=== PATIENT | male | born 1965 | race Caucasian/White ===

== ENCOUNTER 2019-04-22 08:02 | Outpatient (CLI) | payer OTHER, SELFPAY ==
[2019-04-22 08:30] LABS: Basophils Absolute Auto 0.1 K/mm3 (0.0-0.1); Basophils Percent Auto 0.7 % (0.2-1.2); Eosinophils Absolute Auto 0.2 K/mm3 (0-0.3); Eosinophils Percent Auto 2.1 % (0-4.4); Hematocrit 46.1 % (42.0-52.0); Hemoglobin 16.4 g/dL (14.0-18.0); Immature Granulocyte Absolute 0.03 K/mm3 (0.00-0.031); Immature Granulocyte Percent A 0.4 % (0-0.5); Lymphocytes Absolute Auto 2.01 K/mm3 (0.9-3.2); Lymphocytes Percent Auto 26.6 % (18.3-44.2); Mean Corpuscular HGB Conc 35.6 g/dl (32-36); Mean Corpuscular Hemoglobin 32.8 pg (26-34); Mean Corpuscular Volume 92.2 fl (80-100); Mean Platelet Volume 10.4 fl (7.4-10.4); Monocytes Absolute Auto 0.7 K/mm3 (0.1-0.6); Monocytes Percent Auto 8.6 % (2.6-8.5); Neutrophils Absolute Auto 4.7 K/mm3 (1.3-6.7); Neutrophils Percent Auto 61.6 % (45.5-73.1); Platelet Count Result 245 k/mm3 (150-375); Red Cell Distribution Width 12.6 % (11.5-14.5); White Blood Count 7.6 K/mm3 (4.5-10.0)
[2019-04-22 08:54] LABS: Alanine Aminotransferase 68 U/L (4-50); Albumin Level 4.6 g/dL (3.5-5.1); Alkaline Phosphatase 46 U/L (38-126); Aspartate Amino Transferase 39 U/L (17-59); Bilirubin,Total 0.7 mg/dL (0.2-1.3); Blood Urea Nitrogen 15 mg/dL (9-20); Calcium 9.8 mg/dL (8.4-10.2); Carbon Dioxide 24 mmol/L (22-30); Chloride 102 mmol/L (98-107); Cholesterol 190 mg/dL (0-200); Estimated Glomerular Filt Rate > 60; Glucose 116 mg/dL (75-110); HDL Direct 56 mg/dL; Potassium 4.3 mmol/L (3.4-5.0); Sodium 140 mmol/L (137-145); Triglycerides 109 mg/dL (<150)
[2019-04-22 09:05] LABS: LDL Cholesterol Direct 111 mg/dL
[2019-04-22 09:17] LABS: Prostate Specific Antigen 0.6 ng/mL (< OR = 4.0)
== END 2019-04-22 08:03 | disposition home or self-care (01) ==
PROVIDERS: PCP Family Medicine; Visit Provider Family Medicine
DX: Z00.00 Encounter for general adult medical examination without abnormal findings (principal); I10 Essential (primary) hypertension; Z13.220 Encounter for screening for lipoid disorders; Z12.5 Encounter for screening for malignant neoplasm of prostate; F32.9 Major depressive disorder, single episode, unspecified; K58.0 Irritable bowel syndrome with diarrhea
CPT/HCPCS: 36415; 80053; 80061; 84153; 84443; 85025

== ENCOUNTER 2019-04-25 17:45 | Outpatient (NON) | payer OTHER, SELFPAY ==
[2019-04-25 17:59] LABS: Hemoglobin A1C 5.7 % (<5.7)
== END 2019-04-25 17:46 ==
LOC: ANHLAB 17:46
PROVIDERS: PCP Family Medicine; Visit Provider Family Medicine
DX: R73.9 Hyperglycemia, unspecified (principal)
CPT/HCPCS: 36415; 83036

== ENCOUNTER 2019-05-29 15:42 | Emergency (ER) | payer OTHER, SELFPAY ==
[2019-05-29 15:46] VITALS: BP 125/84; PULSE 63; RESP 18; TEMP 36.4; O2SAT 100
--- NOTE | 2019-05-29 16:21 | ED.GIBLEED ---
HPI - GI Bleed General Chief complaint: GI Bleed <Brooklyn Gallegos PA-C - Last Filed: 05/29/19 19:24> Stated complaint: weakness/defecating blood <Brooklyn Gallegos PA-C - Last Filed: 05/29/19 19:24> Time Seen by Provider: 05/29/19 15:53 <Brooklyn Gallegos PA-C - Last Filed: 05/29/19 19:24> Source: patient <HARRIET Stapleton Last Filed: 05/29/19 19:24> Mode of arrival: ambulatory <Brooklyn Gallegos PA-C - Last Filed: 05/29/19 19:24> Limitations: no limitations <HARRIET Stapleton Last Filed: 05/29/19 19:24> History of Present Illness HPI Narrative: Patient presents with chief complaint of streaks of red blood intermittently with bowel movements for the past week. He denies diarrhea or vomiting. He states his stool has been hard recently. Patient reports diffuse suprapubic discomfort. Patient denies prior history of GI bleeds or ulcers. Patient states that he drinks on occasion and last had an alcoholic beverage on Wednesday. He states he felt fatigued today and had some body aches. Patient denies any cough, chest pain, shortness of breath. <Brooklyn Gallegos PA-C - Last Filed: 05/29/19 19:24> Related Data Allergies/Adverse reactions: Allergies Allergy/AdvReac Type Severity Reaction Status Date / Time No Known Allergies Allergy Verified 05/29/19 16:08 <Brooklyn Gallegos PA-C - Last Filed: 05/29/19 19:24> Review of Systems Review of Systems: Narrative: CONSTITUTIONAL: Reports fatigue and body aches denies fever, chills, or sweats. EYES: Denies visual changes, redness, or discharge. ENT: Denies rhinorrhea, congestion, sore throat, or otalgia. CARDIOVASCULAR: Denies chest pain, palpitations, or edema. RESPIRATORY: Denies cough or dyspnea. GASTROINTESTINAL: Reports rare blood in stool and diffuse suprapubic discomfort denies nausea, vomiting, or diarrhea. GENITOURINARY: Denies dysuria or hematuria. SKIN: Denies rash or itching. MUSCULOSKELETAL: Denies back pain, joint pain, or myalgia. NEUROLOGIC: Denies headache, numbness, dizziness, or neurological deficit PSYCHIATRIC: Denies anxiety or depression. <Brooklyn Gallegos PA-C - Last Filed: 05/29/19 19:24> [facility] Social History Social History: Social History (Updated 05/09/19 @ 11:09 by Sera Reynolds) Smoking status: Never smoker Second hand tobacco smoke exposure: No Additional smoking assessment comments: currently smokes around pt Alcohol intake: current Substance use: never Substance use type: does not use Gender identity (if verbalized by the patient): Male <Brooklyn Gallegos PA-C - Last Filed: 05/29/19 19:24> Exam Narrative: Exam Narrative: GENERAL: Well-appearing, well-nourished, and in no acute distress. HEAD: Normocephalic, atraumatic. EYES: PERRLA and EOMI. ENT: Nares clear, no rhinorrhea or epistaxis. Mucous membranes moist. Oropharynx without tonsillar hypertrophy exudate or other lesions. Bilateral TMs pearly osullivan nonbulging CHEST: Clear to auscultation. No respiratory distress. No wheezes rales or rhonchi HEART: Regular rate and rhythm. No murmur heard. Normal peripheral pulses. ABDOMEN: Soft, mild diffuse lower quadrant tenderness, nondistended, normal active bowel sounds. Hemoccult negative. EXTREMITIES: Normal range of motion. No edema. SKIN: Warm, dry, no rash. NEURO: No focal deficits. Alert and oriented x3. PSYCH: Normal mood and affect. <Brooklyn Gallegos PA-C - Last Filed: 05/29/19 19:24> Course Vital Signs Vital signs: Vital Signs Temperature 36.4 C 05/29/19 15:46 Pulse Rate 63 05/29/19 15:46 Respiratory Rate 18 05/29/19 15:46 Blood Pressure 125/84 05/29/19 15:46 Pulse Oximetry 100 05/29/19 15:46 Temperature 36.4 C 05/29/19 15:46 Pulse Rate 63 05/29/19 15:46 Respiratory Rate 18 05/29/19 15:46 Blood Pressure 125/84 05/29/19 15:46 Pulse Oximetry 100 05/29/19 15:46 <Brooklyn Gallegos PA-C - Last Filed: 05/29/19 19:24>
[2019-05-29] MEDS: SODIUM CHLORIDE 0.9% IV 1,000 ML 999 ML IV CONT (16:28)
[2019-05-29 16:46] LABS: Basophils Absolute Auto 0.1 K/mm3 (0.0-0.1); Eosinophils Percent Auto 9.1 % (0-4.4); Hematocrit 48.1 % (42.0-52.0); Hemoglobin 16.7 g/dL (14.0-18.0); Immature Granulocyte Absolute 0.06 K/mm3 (0.00-0.031); Immature Granulocyte Percent A 0.6 % (0-0.5); Lymphocytes Percent Auto 23.8 % (18.3-44.2); Mean Corpuscular HGB Conc 34.7 g/dl (32-36); Mean Corpuscular Volume 95.1 fl (80-100); Mean Platelet Volume 11.3 fl (7.4-10.4); Monocytes Absolute Auto 0.8 K/mm3 (0.1-0.6); Monocytes Percent Auto 7.8 % (2.6-8.5); Neutrophils Absolute Auto 6.1 K/mm3 (1.3-6.7); Neutrophils Percent Auto 57.7 % (45.5-73.1); Platelet Count Result 272 k/mm3 (150-375); Red Blood Count 5.06 M/mm3 (4.6-6.20); White Blood Count 10.5 K/mm3 (4.5-10.0)
[2019-05-29 16:56] LABS: Add Urine Microscopic? NO; Appearance Urine Clear (Clear); Bilirubin Urine Negative (Negative); Blood Urine Negative (Negative); Color Urine Yellow (Yellow); Glucose Urine UA Negative (Negative); Ketones Urine Negative (Negative); Leukocyte Esterase Ur Negative LEU/UL (Negative); Nitrate Urine Negative (Negative); Protein Urine Negative (Negative); Specific Grav Ur 1.012 (1.001-1.035); Urobilinogen Urine Negative mg/dL (<2.0)
[2019-05-29 16:59] LABS: Alanine Aminotransferase 58 U/L (4-50); Albumin Level 4.8 g/dL (3.5-5.1); Alkaline Phosphatase 45 U/L (38-126); Aspartate Amino Transferase 36 U/L (17-59); Bilirubin,Total 0.4 mg/dL (0.2-1.3); Blood Urea Nitrogen 21 mg/dL (9-20); Calcium 9.7 mg/dL (8.4-10.2); Carbon Dioxide 24 mmol/L (22-30); Chloride 105 mmol/L (98-107); Estimated CRCL calculation 98 ml/min; Estimated Glomerular Filt Rate > 60; Glucose 112 mg/dL (75-110); Potassium 4.2 mmol/L (3.4-5.0); Sodium 138 mmol/L (137-145)
--- NOTE | 2019-06-07 11:45 | PC.NURSE ---
Late entry by this RN. Pt received 1000 ml of NS that was completed at 1717
== END 2019-05-29 18:18 | disposition home or self-care (01) ==
PROVIDERS: Physician Assistant; Emergency Provider Emergency Medicine; PCP Family Medicine
DX: K92.1 Melena (principal); Z77.22 Contact with and (suspected) exposure to environmental tobacco smoke (acute) (chronic)
CPT/HCPCS: 36415; 80053; 81003; 85025; 87804; 96360; 99283; J7030

== ENCOUNTER 2019-11-15 19:33 | Emergency (ER) | payer OTHER, SELFPAY ==
--- NOTE | ~2019-11-15 | CT_ITS ---
EXAMINATION: CT lumbar spine wo con DATE: 11/15/2019 20:38 INDICATION: Low back pain. TECHNIQUE: Computed tomography (CT) of the lumbar spine was performed without intravenous contrast. A utomated exposure control and iterative reconstruction technique were employed. The dose-length produ ct was 863.57 mGy-cm. COMPARISON: None FINDINGS: There is 7 degrees dextrocurvature of lumbar spine. There is 3 mm retrolisthesis of L3 on L 4 and 4 mm anterolisthesis of L3 on L4. There are Schmorl's nodes at multiple levels. There is mildly decreased disc height at L1-L2, severely decreased disc height at L2-L3, moderately decreased disc h eight at L3-L4, and severely decreased disc height at L4-L5 and L5-S1. The following disc levels are specifically discussed: L1-L2: The disc is bulging. There is mild right and moderate left facet joint osteoarthritis. There i s mild bilateral neural foraminal stenosis. There is mild central canal stenosis. L2-L3: The disc is bulging. There is severe right and moderate left facet joint osteoarthritis. There is mild right and moderate left neural foraminal stenosis. There is mild central canal stenosis. L3-L4: The disc is bulging. There is mild bilateral facet joint osteoarthritis. There is mild bilater al neural foraminal stenosis. There is mild central canal stenosis. L4-L5: The disc is bulging. There is severe bilateral facet joint osteoarthritis. There is moderate b ilateral neural foraminal stenosis. There is mild central canal stenosis. L5-S1: The disc is bulging. There is severe right and mild left facet joint osteoarthritis. There is mild bilateral neural foraminal stenosis. There is mild central canal stenosis. IMPRESSION: 1. Severe lumbar spondylosis. Reviewed, dictated and finalized at location A.
[2019-11-15 19:39] VITALS: BP 166/85; PULSE 66; RESP 14; TEMP 36.2; O2SAT 99
--- NOTE | 2019-11-15 19:51 | PC.NURSE ---
pt c/o lumbar region back pain. pt states pain is chronic but worsened after lifting heavy object today. denies any numbness/tingling, loss of bowel/bladder. pt ambulatory in ED but c/o pain. +PMS.
--- NOTE | 2019-11-15 19:56 | ED.BACK ---
HPI - Back Pain/Injury General Chief Complaint: Back Pain/Injury Stated Complaint: back pain Time Seen by Provider: 11/15/19 19:56 Source: patient Mode of arrival: ambulatory Limitations: no limitations History of Present Illness HPI Narrative: Patient is a 54-year-old male with a history of hypertension who presents for evaluation of back pain. Patient states he was lifting a heavy object house approximately 80 pound this afternoon when he felt a pop in his left lower back. Patient had immediate pain that radiates into his buttocks. He denies any urinary retention, saddle anesthesia, minimal pain with walking, but no difficulty with walking. He states that he has a history of discectomy, lower back surgery 14 years prior. Patient denies any cancer history, history of osteoporosis, no fall. No numbness or weakness in his lower extremities. Patient took ibuprofen earlier today which somewhat alleviated the pain. Related Data Allergies Allergy/AdvReac Type Severity Reaction Status Date / Time No Known Allergies Allergy Verified 11/15/19 19:45 Review of Systems Review of Systems: Narrative: CONSTITUTIONAL: Denies fever CARDIOVASCULAR: Denies chest pain RESPIRATORY: Denies cough or dyspnea. GASTROINTESTINAL: Denies abdominal pain SKIN: Denies rash MUSCULOSKELETAL: Reports left-sided lower back pain NEUROLOGIC: Denies headache PMFSH Past Medical History Medical History Arthritis Chondromalacia of left patellofemoral joint Chondromalacia of patellofemoral joint Depression Diverticulitis Headache Hypertension SURI (obstructive sleep apnea) Osteoarthritis Seasonal allergies Stomach pain Vision abnormalities Weight gain Surgical History Surgical History History of carpal tunnel release 1997 History of discectomy 2005 History of shoulder surgery 2007 Social History Social History Smoking status: Never smoker Second hand tobacco smoke exposure: No Additional smoking assessment comments: currently smokes around pt Alcohol intake: current Substance use: never Substance use type: does not use Gender identity (if verbalized by the patient): Male Exam Narrative: Exam Narrative: GENERAL: Awake, alert, conversant HEAD: Normocephalic, atraumatic. EYES: PERRLA and EOMI. ENT: Nares clear, no rhinorrhea or epistaxis. Mucous membranes moist. NECK: Supple. CHEST: No respiratory distress, breathing even and non labored HEART: Regular rate, sinus rhythm ABDOMEN:Non distended, non tender Thoracolumbar: No midline thoracic or lumbar tenderness. Right lumbar SI joint tenderness that reproduces pain. EXTREMITIES: Normal range of motion. No edema. SKIN: Warm, dry, no rash. NEURO:No focal deficits. Alert and oriented x3.No facial droop/asymmetry noted bilaterally. Grimace intact. Intact sensation in face.Strength 5/5 bilateral upper extremities. Strength 5/5 bilateral lower extremities. Reflexes 2+ patellar. Ambulatory with a narrow base, steady gait, no ataxia, no foot drop. Course Vital Signs Vital signs: Vital Signs Temperature 36.2 C L 11/15/19 19:39 Pulse Rate 66 11/15/19 19:39 Respiratory Rate 14 11/15/19 19:39 Blood Pressure 166/85 H 11/15/19 19:39 Pulse Oximetry 99 11/15/19 19:39 Temperature 36.2 C L 11/15/19 19:39 Pulse Rate 66 11/15/19 19:39 Respiratory Rate 14 11/15/19 19:39 Blood Pressure 166/85 H 11/15/19 19:39 Pulse Oximetry 99 11/15/19 19:39 MDM - Back Pain/Injury MDM Narrative Medical decision making narrative: Given History and Exam the patient appears to be at low risk for Spinal Cord Compression Syndrome, Vertebral Malignancy/Mets, acute Spinal Fracture, Vertebral Osteomyelitis, Epidural Abscess, Infected or Obstructing Kidney Stone. Patient is ambulatory with a narrow base, steady gait,
[2019-11-15] MEDS: IBUPROFEN 400 MG TABLET PO (20:07)
[2019-11-15] MEDS: ACETAMINOPHEN 500 MG TABLET 1000 MG PO (20:07)
== END 2019-11-15 21:01 | disposition home or self-care (01) ==
PROVIDERS: Emergency Provider Emergency Medicine; PCP Family Medicine
DX: M48.061 Spinal stenosis, lumbar region without neurogenic claudication (principal); M19.90 Unspecified osteoarthritis, unspecified site; F32.9 Major depressive disorder, single episode, unspecified; I10 Essential (primary) hypertension; G47.30 Sleep apnea, unspecified
CPT/HCPCS: 72131; 99284; A9270

== ENCOUNTER → 2020-06-28 06:42 | Outpatient (CLI) | payer OTHER, SELFPAY ==
[2020-06-28 19:12] LABS: SARS-CoV-2 RNA PCR Negative
== END ==
PROVIDERS: PCP Family Medicine
DX: Z20.822 Contact with and (suspected) exposure to COVID-19 (principal)
CPT/HCPCS: C9803; U0003; U0005

== ENCOUNTER 2021-02-06 09:53 | Outpatient (CLI) | payer OTHER, SELFPAY ==
--- NOTE | ~2021-02-06 | XR_ITS ---
EXAMINATION: XR chest 2V DATE: 02/06/2021 10:37 INDICATION: Preoperative evaluation with risk factors of hypertension TECHNIQUE: PA and lateral views of the chest were obtained. COMPARISON: Chest radiograph dated 02/01/2013 FINDINGS: The lungs remain clear with no focal airspace opacities, pulmonary edema, pleural effusion or pneumot horax. The cardiomediastinal silhouette is normal. Chronic mild anterior wedging of a few lower thora cic vertebral bodies. IMPRESSION: 1. No acute cardiopulmonary disease. Reviewed, dictated and finalized at location B. OL ATHLETIC DIRECTOR
--- NOTE | 2021-02-06 10:59 | ECG_ITS ---
Measurements Intervals [place] Rate: 62 P: 32 NE: 162 QRS: -15 QRSD: 100 T: 40 QT: 394 QTc: 402 Interpretive Statements SINUS RHYTHM BASELINE ARTIFACT- V1 NORMAL ECG Electronically Signed On 02-06-2021 16:40:14 [employer] by Tank Uriarte D.O.
[2021-02-06 11:07] LABS: Hematocrit 43.7 % (42.0-52.0); Hemoglobin 15.1 g/dL (14.0-18.0); Mean Corpuscular HGB Conc 34.6 g/dl (32-36); Mean Corpuscular Hemoglobin 33.1 pg (26-34); Mean Corpuscular Volume 95.8 fl (80-100); Mean Platelet Volume 10.4 fl (7.4-10.4); Platelet Count Result 274 k/mm3 (150-375); Red Blood Count 4.56 M/mm3 (4.6-6.20); Red Cell Distribution Width 13.2 % (11.5-14.5); White Blood Count 10.2 K/mm3 (4.5-10.0)
[2021-02-06 11:17] LABS: INR 0.9; Prothrombin Time 11.8 Seconds (11.1-14.7)
[2021-02-06 11:18] LABS: Partial Thromboplastin Time 25.2 SECONDS (22.3-36.8)
[2021-02-06 11:29] LABS: Alanine Aminotransferase 43 U/L (4-50); Albumin Level 4.4 g/dL (3.5-5.1); Alkaline Phosphatase 58 U/L (38-126); Anion Gap 11 mmol/L (8-16); Aspartate Amino Transferase 31 U/L (17-59); Bilirubin,Total 0.5 mg/dL (0.2-1.3); Blood Urea Nitrogen 14 mg/dL (9-20); Calcium 9.6 mg/dL (8.4-10.2); Carbon Dioxide 25 mmol/L (22-30); Chloride 101 mmol/L (98-107); Estimated Glomerular Filt Rate > 60; Glucose 103 mg/dL (65-110); Potassium 4.6 mmol/L (3.4-5.0); Sodium 137 mmol/L (137-145)
== END 2021-02-06 09:54 | disposition home or self-care (01) ==
PROVIDERS: PCP Family Medicine
DX: Z01.818 Encounter for other preprocedural examination (principal); M54.50 Low back pain, unspecified; M75.120 Complete rotator cuff tear or rupture of unspecified shoulder, not specified as traumatic; R68.89 Other general symptoms and signs; R79.1 Abnormal coagulation profile
CPT/HCPCS: 36415; 71046; 80053; 85027; 85610; 85730; 93005

== ENCOUNTER 2021-08-03 11:57 | Emergency (ER) | payer OTHER, SELFPAY ==
[2021-08-03 11:59] VITALS: PULSE 65; RESP 16; TEMP 37; O2SAT 99
[2021-08-03] MEDS: KETOROLAC 30 MG/ML VIAL (*BKC) IV PUSH (12:28)
[2021-08-03] MEDS: diazePAM INJ (*CRX) 10 MG/2 ML SYRINGE 5 MG IV PUSH (12:30)
--- NOTE | 2021-08-03 13:48 | ED.BACK ---
HPI - Back Pain/Injury General Chief Complaint: Back Pain/Injury Stated Complaint: Back pain Time Seen by Provider: 08/03/21 12:10 History of Present Illness HPI Narrative: Patient is a 55-year-old male who presents ER with low back pain. Has history of chronic back pain has had multiple surgeries. He is scheduled to see pain management this week. Reports yesterday he was walking around his aboveground pool skimming debris out with a net. He was not doing a lot of bending or twisting. He has not done any heavy lifting. Woke up today and he has increased pain in his low back. It radiates laterally across his entire back. He has chronic numbness and burning in the left anterior thigh that has not increased. He is starting get some tingling in the right thigh but is not new with the pain today. No fevers or chills or sweats. No saddle anesthesia. No difficulty with urination/defecation. Related Data Home Medications Medication Instructions Recorded Confirmed acetaminophen 500 mg capsule 500 mg PO Q6H PRN fever or pain 09/04/20 03/19/21 gabapentin 300 mg capsule 300 mg PO BID PRN back pain 09/04/20 03/19/21 tizanidine 2 mg capsule 2 mg PO QHS 09/04/20 03/19/21 Allergies Allergy/AdvReac Type Severity Reaction Status Date / Time No Known Allergies Allergy Verified 08/03/21 12:02 [facility] Past Medical History Medical History Arthritis Chondromalacia of left patellofemoral joint Chronic low back pain Depression Diverticulitis Headache History of 01/2021 Hypertension SURI (obstructive sleep apnea) Osteoarthritis Prediabetes Seasonal allergies Stomach pain Vision abnormalities Weight gain Surgical History Surgical History History of back surgery (~07/02/20) L4-5 fusion History of carpal tunnel release (~1997) History of discectomy (~2004) L5-S1 History of shoulder surgery (~2007) Family History Family History Other Family history of coronary artery disease Heart disease Hypertension Social History Social History Second hand tobacco smoke exposure: No Additional smoking assessment comments: currently smokes around pt Alcohol intake: current Alcohol use details: consumes 2 beers weekly Substance use: never Substance use type: does not use Gender identity (if verbalized by the patient): Male Exam Narrative: GENERAL: Uncomfortable-appearing, well-nourished, and in no acute distress. HEAD: Normocephalic, atraumatic. CHEST: Clear to auscultation. No respiratory distress. HEART: Regular rate and rhythm. Normal peripheral pulses. ABDOMEN: Soft, nontender, nondistended. Back: No reproducible midline tenderness of thoracic or lumbar spine. Patient reports his pain is in the paraspinal musculature of L4-L5 but no palpable spasm EXTREMITIES: Normal range of motion. No edema. Walks with a limp. SKIN: Warm, dry, no rash. NEURO: Alert and oriented x3. PSYCH: Normal mood and affect. Course Course Emergency Course: Pain improved after Toradol and Valium. He is walking better as well. Discharge home with Valium. He is seeing a pain management physician in 2 days. Vital Signs Vital signs: Vital Signs Temperature 98.6 F 08/03/21 11:59 Pulse Rate 65 08/03/21 11:59 Respiratory Rate 16 08/03/21 11:59 Pulse Oximetry 99 08/03/21 11:59 Temperature 98.6 F 08/03/21 11:59 Pulse Rate 65 08/03/21 11:59 Respiratory Rate 16 08/03/21 11:59 Pulse Oximetry 99 08/03/21 11:59 Discharge Plan Discharge Clinical Impression: Low back pain Patient Disposition: Home, Self-Care Condition: Stable Instructions: Acute Low Back Pain (ED) Additional Instructions: Return to the ER if you have increased pain in your back, you d
== END 2021-08-03 14:29 | disposition home or self-care (01) ==
PROVIDERS: Emergency Provider Emergency Medicine; PCP Family Medicine
DX: M54.50 Low back pain, unspecified (principal); I10 Essential (primary) hypertension; G47.33 Obstructive sleep apnea (adult) (pediatric); M19.90 Unspecified osteoarthritis, unspecified site; Z86.16 Personal history of COVID-19; R73.03 Prediabetes; F32.A Depression, unspecified; Z98.1 Arthrodesis status; Z77.22 Contact with and (suspected) exposure to environmental tobacco smoke (acute) (chronic)
CPT/HCPCS: 96374; 96375; 99284; J1885; J3360

== ENCOUNTER 2022-04-17 10:28 | Emergency (ER) | payer BC, SELFPAY ==
[2022-04-17] VITALS (20 sets, daily range): BP systolic 146–177; BP diastolic 86–99; PULSE 56–78; RESP 16–22; TEMP 36.2; O2SAT 96–100
--- NOTE | ~2022-04-17 | XR_ITS ---
EXAMINATION: XR shoulder LT min 2V INDICATION: Left shoulder pain TECHNIQUE: Four views of the left shoulder are submitted. COMPARISON: None FINDINGS: Normal alignment. No fracture. There is mild osteoarthritis of the acromioclavicular and gl enohumeral joints. Soft tissues are unremarkable. IMPRESSION: 1. No acute osseous abnormality. Reviewed, dictated and finalized at location B. TESTER
--- NOTE | ~2022-04-17 | XR_ITS ---
EXAMINATION: XR chest 2V DATE: 04/17/2022 10:59 INDICATION: Left-sided chest pain TECHNIQUE: PA and lateral views of the chest are obtained. COMPARISON: 02/06/2021 FINDINGS: The lungs are free of acute opacities. No pleural effusion or pneumothorax. The cardiomedia stinal silhouette is normal. There is mild thoracic spondylosis. IMPRESSION: 1. No acute cardiopulmonary abnormality. Reviewed, dictated and finalized at location B. AGE CLERK
--- NOTE | 2022-04-17 10:30 | ECG_ITS ---
Measurements Intervals [place] Rate: 72 P: 47 GA: 173 QRS: -23 QRSD: 96 T: 31 QT: 372 QTc: 410 Interpretive Statements SINUS RHYTHM BORDERLINE LEFT AXIS DEVIATION [QRS AXIS < -20] COMPARED TO ECG 02/06/2021 11:13:39 NO SIGNIFICANT CHANGES Electronically Signed On 04-17-2022 15:30:59 [employer] SOCI[employer] by Edi Gannon M.D.
[2022-04-17 11:02] LABS: Basophils Absolute Auto 0.1 K/mm3 (0.0-0.1); Basophils Percent Auto 0.6 % (0.2-1.2); Eosinophils Absolute Auto 0.2 K/mm3 (0-0.3); Eosinophils Percent Auto 1.8 % (0-4.4); Hematocrit 46.3 % (42.0-52.0); Hemoglobin 16.5 g/dL (14.0-18.0); Immature Granulocyte Absolute 0.06 K/mm3 (0.00-0.031); Immature Granulocyte Percent A 0.5 % (0-0.5); Lymphocytes Absolute Auto 2.47 K/mm3 (0.9-3.2); Lymphocytes Percent Auto 19.8 % (18.3-44.2); Mean Corpuscular HGB Conc 35.6 g/dl (32-36); Mean Corpuscular Hemoglobin 32.9 pg (26-34); Mean Corpuscular Volume 92.2 fl (80-100); Mean Platelet Volume 10.3 fl (7.4-10.4); Monocytes Absolute Auto 0.8 K/mm3 (0.1-0.6); Monocytes Percent Auto 6.5 % (2.6-8.5); Neutrophils Absolute Auto 8.8 K/mm3 (1.3-6.7); Neutrophils Percent Auto 70.8 % (45.5-73.1); Platelet Count Result 293 k/mm3 (150-375); Red Blood Count 5.02 M/mm3 (4.6-6.20); Red Cell Distribution Width 13.2 % (11.5-14.5); White Blood Count 12.5 K/mm3 (4.5-10.0)
[2022-04-17 11:12] LABS: Prothrombin Time 12.6 Seconds (11.1-14.7)
[2022-04-17 11:14] LABS: Partial Thromboplastin Time 25.4 SECONDS (22.3-36.8)
[2022-04-17 11:17] LABS: Alanine Aminotransferase 30 U/L (6-50); Albumin Level 4.8 g/dL (3.5-5.1); Alkaline Phosphatase 66 U/L (38-126); Anion Gap 5 mmol/L (8-16); Aspartate Amino Transferase 31 U/L (17-59); Bilirubin,Total 0.5 mg/dL (0.2-1.3); Blood Urea Nitrogen 10 mg/dL (9-20); Calcium 9.6 mg/dL (8.4-10.2); Carbon Dioxide 25 mmol/L (22-30); Chloride 105 mmol/L (98-107); Estimated CRCL calculation 118 ml/min; Estimated Glomerular Filt Rate > 60; Glucose 148 mg/dL (65-110); Lipase 127 U/L (23-300); Sodium 135 mmol/L (137-145)
[2022-04-17 11:18] LABS: Potassium 3.8 mmol/L (3.4-5.0)
[2022-04-17 11:27] LABS: Troponin I < 0.012 ng/mL (0.000-0.034)
--- NOTE | 2022-04-17 13:37 | ED.GENADULT ---
HPI - General Adult General Chief complaint: Extremity Injury, Upper Stated complaint: htn/left arm pain/nausea Time Seen by Provider: 04/17/22 11:57 History of Present Illness HPI narrative: 56-year-old male presented the emergency department for evaluation of left shoulder pain and hypertension. Patient states he has been having the left arm pain since Wednesday. Patient denies any known injury to the arm. Related Data Home Medications Medication Instructions Recorded Confirmed acetaminophen 500 mg capsule 500 mg PO Q6H PRN fever or pain 09/04/20 09/24/21 oxycodone-acetaminophen 5 mg-325 1 tablet PO Q4-6H PRN pain 08/22/21 09/24/21 mg tablet baclofen 5 mg tablet 5 mg PO Q8H 09/24/21 09/24/21 pregabalin 150 mg capsule 150 mg PO BID 09/24/21 09/24/21 tizanidine 4 mg tablet 4 mg PO DAILY 09/24/21 09/24/21 Allergies Allergy/AdvReac Type Severity Reaction Status Date / Time No Known Allergies Allergy Verified 09/24/21 09:20 Review of Systems Review of Systems: CONSTITUTIONAL: Denies fever, chills, or sweats. EYES: Denies visual changes, redness, or discharge. ENT: Denies rhinorrhea, congestion, sore throat, or otalgia. CARDIOVASCULAR: Denies chest pain, palpitations, or edema. RESPIRATORY: Denies cough or dyspnea. GASTROINTESTINAL: Denies abdominal pain, nausea, vomiting, or diarrhea. GENITOURINARY: Denies dysuria or hematuria. SKIN: Denies rash or itching. MUSCULOSKELETAL: See HPI NEUROLOGIC: Denies headache, numbness, or weakness. [facility] Past Medical History Medical History (Updated 04/25/22 @ 12:02 by Garrick Piedra MD) Chondromalacia of left patellofemoral joint Chronic low back pain Depression Diverticulitis History of COVID-19 01/2021 Hypertension SURI (obstructive sleep apnea) Osteoarthritis Prediabetes Seasonal allergies Surgical History Surgical History History of back surgery L3-4 fusion in June 2020, disc replacement L2-3 in Apr 2021 History of carpal tunnel release (~1997) History of discectomy (~2004) L5-S1 History of shoulder surgery (~2007) Family History Family History Other Family history of coronary artery disease Heart disease Hypertension Social History Social History Smoking status: Never smoker Second hand tobacco smoke exposure: No Additional smoking assessment comments: currently smokes around pt Alcohol intake: current Alcohol use details: consumes 2 beers weekly Substance use: never Substance use type: does not use Living arrangements: with family Occupation/Education: unemployed Gender identity (if verbalized by the patient): Male Sexual Orientation (if Verbalized by the Patient): Straight or Heterosexual Agree to blood products: Yes Exam Narrative: APPEARANCE: Well appearing, no pain, no distress, well-nourished. HEAD: normocephalic, atraumatic. EYES: PERRLA/EOMI, conjunctivae clear. NOSE: Normal no drainage NECK: Supple. No adenopathy, no masses. RESPIRATORY: Airway patent, respirations nonlabored. Clear to auscultation bilaterally, no rales, rhonchi, wheezing. CARDIOVASCULAR: Regular rate and rhythm without murmurs rubs or gallops. ABDOMINAL: Soft, nontender, nondistended, normal bowel sounds MUSCULOSKELETAL: Left arm pain is reproducible with movement NEURO: Alert. Cranial nerves II through XII intact. Good gait. Good coordination SKIN: Warm, dry. Normal Color Course Course Emergency Course: Cardiogram was ordered due to the patient reporting high blood pressure and left arm pain. Patient's arm pain is very reproducible with movement. Shoulder x-ray showed no acute fracture or dislocation. Patient's EKG showed no evidence of acute STEMI. Patient's blood pressure was elevated upon arrival but without treatment patient's blood pressure did improve to 150/
[2022-04-17 14:45] LABS: Troponin I < 0.012 ng/mL (0.000-0.034)
== END 2022-04-17 15:18 | disposition home or self-care (01) ==
PROVIDERS: Emergency Provider Emergency Medicine
DX: M25.512 Pain in left shoulder (principal); R07.9 Chest pain, unspecified; I10 Essential (primary) hypertension; R73.03 Prediabetes; G47.33 Obstructive sleep apnea (adult) (pediatric); M19.90 Unspecified osteoarthritis, unspecified site; Z98.1 Arthrodesis status; Z86.16 Personal history of COVID-19; Z77.22 Contact with and (suspected) exposure to environmental tobacco smoke (acute) (chronic); R94.31 Abnormal electrocardiogram [ECG] [EKG]
CPT/HCPCS: 36415; 71046; 73030; 80053; 83690; 84484; 85025; 85610; 85730; 93005; 99284

== ENCOUNTER 2024-12-08 09:03 | Emergency (ER) | payer MEDICARE, SELFPAY ==
--- NOTE | ~2024-12-08 | CT_ITS ---
EXAMINATION: CT lumbar spine wo con DATE: 12/08/2024 9:37 CDT INDICATION: Right-sided back pain after stepping in a hole. TECHNIQUE: Computed tomography (CT) of the lumbar spine was performed without intravenous contrast. The dose-length product was 977.53 mGy-cm. COMPARISON: None FINDINGS: Posterior spinal fusion of L2, L3, L4, L5 and S1 with transpedicular screws and vertical rods. Interbody fusion devices at the L2-L3, L3-L4 and L5-S1 levels. The interbody fusion device at the L3-L4 level is more anterior than the other fusion devices. Interbody fusion device at the L4-L5 level. Bones appear osteopenic. No compression fracture. Evaluation of the spinal canal contents and bilateral neural foramen is limited due to CT technique and metallic artifact. Mild joint space narrowing at the L1-L2 level. Small broad-based disc bulge at the L1-L2 level causing mild narrowing of the spinal canal. Moderate narrowing of the left neural foramen. Degenerative change in the facet joints at the L1 l evel. Moderate narrowing of the right neural foramen at the L1 level. Dextroconvex curvature of the lumbar spine. IMPRESSION: 1. Posterior spinal fusion from L2 through S1. 2. The study is significantly limited. 3. No compression fracture in the lumbar spine. If symptoms persist or worsen, consider an MRI of the lumbar spine for further assessment. Reviewed, dictated and finalized at location Q.
[2024-12-08 09:08] VITALS: BP 146/87; PULSE 67; RESP 19; TEMP 36.7; O2SAT 98
--- OUTSIDE RECORDS SUMMARY | 2024-12-08 09:21 | XMS_ITS | Clinical Summary ---
Author Organization [facility] [address] [facility] Address [address] [place] [address] Care Team Providers Care Silk Worker Name Role Phone Akin Baldwin MD Primary Care Provider Allergies No known active allergies Medications saw palmetto xtr/zinc picolin (SAW PALMETTO EXTRACT ORAL) Take 1 Capsule by mouth daily. Active ergocalciferol, vitamin D2, (VITAMIN D ORAL) Take 1 Capsule by mouth daily. Active vitamin B complex-vitamin C-folic acid 1 mg Capsule Take 1 Capsule by mouth daily. Active meloxicam (MOBIC) 15 mg tablet Take 1 Tablet by mouth daily. 024 Active DULoxetine (CYMBALTA) 60 mg Capsule, Delayed Release(E.C.) TAKE 1 CAPSULE EVERY DAY 90 Capsule 3 025 Active losartan (COZAAR) 100 mg tablet Take 1 Tablet (100 mg) by mouth daily. 100 Tablet 3 025 Active pregabalin (LYRICA) 150 mg CapsuleIndication s:Osteoarthritis of lumbar spine, unspecified spinal osteoarthritis complication status TAKE 1 CAPSULE TWICE DAILY 180 Capsule 3 025 Active montelukast (Singulair) 10 mg tablet Take 1 Tablet (10 mg) by mouth daily at bedtime. 90 Tablet 3 025 Active modafiniL (PROVIGIL) 100 mg TabletIndications :Other sleep apnea Take 1 Tablet (100 mg) by mouth daily. 90 Tablet 2 025 Active azelastine (ASTELIN) 137 mcg/actuation nasal spray Administer 2 Sprays in each nostril 2 times daily. 90 mL 3 025 Active HYDROcodone-aceta minophen (NORCO) 5-325 mg tabletIndications :Osteoarthritis of lumbar spine, unspecified spinal osteoarthritis complication status Take 1 Tablet by mouth every 4 hours as needed for Pain. Max Daily Amount: 6 Tablets 90 Tablet Active tadalafil (CIALIS) 5 mg tablet Take 1 Tablet (5 mg) by mouth daily. 90 Tablet 1 Active gabapentin (NEURONTIN) 100 mg capsule Take 300 mg by mouth 3 times daily. 2024 Discontinued tadalafil (CIALIS) 5 mg tablet Take 1 Tablet (5 mg) by mouth daily. 90 Tablet 3 024 2024 Discontinued HYDROcodone-aceta minophen (NORCO) 5-325 mg tabletIndications :Osteoarthritis of lumbar spine, unspecified spinal osteoarthritis complication status Take 1 Tablet by mouth every 4 hours as needed for Pain. Max Daily Amount: 6 Tablets 90 Tablet 025 2024 Discontinued(R eorder) tadalafil (CIALIS) 5 mg tablet Take 1 tablet by mouth once daily 90 Tablet 025 2024 Discontinued(R eorder) Active Problems Patient Care Coordination No te Formatting of this note migh t be different from the original. [id number] 05/17/24 Problem Noted Date Diagnosed Date Prediabetes 05/17/2024 Other sleep apnea 05/24/2023 Other chronic pain 03/05/2022 Other specified anxiety disorders 03/05/2022 Recurrent major depressive disorder 03/05/2022 Essential hypertension 03/05/2022 Osteoarthritis of lumbar spine 03/05/2022 Encounters Date Type Department Care Team Description 11/30/2024 Refill [place] [address] [place] [phone] Akin Baldwin MD 11/28/2024 Telephone [place] [address] [place] [phone] Aikn Baldwin MD Provider Call 11/27/2024 Refill [place] [address] [place] [phone] Akin Baldwin MD 11/14/2024 External Device Data STL ABSTRACTION Provider, Abstract 11/01/2024 External Device Data [facility] ABSTRACTION Provider, Abstract 10/20/2024 11:00 AM CDT Office Visit [address] [place] [address] Akin Baldwin MD Osteoarthritis of lumbar spine, unspecified spinal osteoarthritis complication status (Primary Dx); Essential hypertension; Lumbar radiculopathy; Other sleep apnea; Recurrent major depressive disorder, remission status unspecified 10/18/2024 External Device Data STL ABSTRACTION Provider, Abstract 10/04/2024 External Device Data ST[facility] ABSTRACTION Provider, Abstract 09/19/2024 External Device Data ST[place] ABSTRACTION Provider, Abstract 09/19/2024 External Device Data ST[facility] ABSTRACTION Provider, Abstract 09/14/[address] [place] [address] Akin Baldwin MD Osteoarthritis of lumbar spine, unspecified spinal osteoarthritis complication status from Last 3 Months Immunizations Immunization Administration Dates Next Due (ADACEL/BOOSTRIX)(10 YR UP) TDAP VACCINE, 0.5ML, IM 07/06/2014,04/05/2014,02/18/2005 ([place]) COVID-19 VACCINE - EMERGENCY USE AUTHORIZATION, AD26,COV2S(PF) 0.5 ML IM SUSP 05/03/2020 INFLUENZA VACCINE QUADRIVALE NT 6 MOS UP IM 01/25/2023 INFLUENZA VACCINE QUADRIVALE NT 6 MOS UP PF IM 01/09/2021,11/23/2019,03/28/2019,2017 INFLUENZA VACCINE TRIVALENT SPLIT VIRUS, (6 MOS UP), 0.5ML (PF), IM 11/12/2023 Influenza Seasonal Unspecifi ed Formulation IM 01/29/2022,03/28/2019,12/15/2016,2013 Influenza Seasonal Unspecifi ed Formulation PF IM 12/15/2016 Td Vaccine >7 YO IM VFC 03/01/2001 Family History Medical History Relation Name Comments Hypertension Father Dad No Known Problems Mother Heart Disease Other Hypertension Sister 1 Sis Hypertension Sister 2 Sis2 Relation Name Status Comments Father Dad Mother Other heart disease i n 40's Sister 1 Sis Alive Sister 2 Sis2 Alive Social History Tobacco Use Types Packs/Day Years Used Date Smoking Tobacco: Never Passive Smoke Exposure: Never Smokeless Tobacco: Never Tobacco Cessation:Counseling Given: No Alcohol Use Standard Drinks/Week Comments Yes 0 (1 standard drink = 0.6 oz pur e alcohol) rarely Feeling Safe Answer Date Recorded Are you in a relationship wi th someone who hurts you emotionally and/or physically? No 12/01/2022 Food Insecurity Answer Date Recorded Social/Environmental Concerns No concerns Transportation Needs Answer Date Record ed Social/Environmental Concerns No concerns Housing Stability Answer Date Recorded Social/Environmental Concerns No concerns Utility Needs Answer Date Recorded Social/Environmental Concerns No concerns Sex and Gender Information Value Date Recorded Sex Assigned at Not on file Legal Sex Male 9:47 PM CDT Gender Identity Not on file Sexual Orientation Not on file Last Filed Vital Signs Vital Sign Reading Time Taken Comments Blood Pressure 116/70 10/20/2024 11:06 AM CDT Pulse 63 10/20/2024 11:06 AM CDT Temperature 36.5 C (97.7 F) 02/12/2023 10:57 AM WEARING APPAREL ASSEMBLER Respiratory Rate 16 02/12/2023 10:57 AM WEARING APPAREL ASSEMBLER Oxygen Saturation 95% 10/20/2024 11:06 AM CDT Inhaled Oxygen Concentration - - Weight 93.9 kg (207 lb) 10/20/2024 11:06 AM CDT Height 177.8 cm (5' 10) 10/20/2024 11:06 AM CDT Body Mass Index 29.7 10/20/2024 11:06 AM CDT Plan of Treatment Upcoming Encounters Date Type Department Care Team (Late st Contact Info) Description 05/03/2025 9:40 AM WEARING APPAREL ASSEMBLER Office Visit [facility] [id number] [place] [address] Akin Baldwin MD [address] [place] [address] [address] [place] [address] Health Maintenance Due Date Last Done Comments FIT/ DNA Q 3 YEARS (AUTO ORDER) 10/02/1983 FIT/FOBT Q 1 YEAR (AUTO ORDER) 10/02/1983 FLEX SIG/CT COLONOGRAPHY Q 5 YEARS (AUTO ORDER) 10/02/1983 HEPATITIS B VACCINES (1 of 3 - 19+ 3-dose series) 1984 COLORECTAL CANCER SCREENING (AUTO ORDER) 2010 COLORECTAL SCREENING 2010 Colorectal Cancer Screening (AUTO ORDER) 2010 Colorectal Cancer Screening 2010 FIT-DNA Q 3 years 2010 FIT/FOBT Q 1 year 2010 Flex Sig/CT Colonography Q 5 years 2010 ZOSTER VACCINE (1 of 2) 10/02/2015 DTAP/TDAP/TD VACCINES (4 - T d or Tdap) 07/06/2024 07/06/2014, 04/05/2014, 02/18/2005, Additional history exists INFLUENZA VACCINE (#1) 2024 , 01/25/2023, 01/29/2022, Additional history exists COVID-19 Vaccine (2 - 2024-2 6 season) 2024 05/03/2020 Pre-Diabetes and Diabetes Screening 02/09/2027 02/10/2024, 11/27/2022 Medical Devices Implanted Type Area Software Validation Technician Device Identifier Shelf Expiration Date Model / Serial / Lot Spacer Catalyft Pl 7mm Xpndble Long [id number] - [id number] Implanted:Qty: 2 on 12/01/2022 by Иван Tee MD at [facility] Cage N/A: Ver[employer]brae [employer] SOFAMOR DANEK 10/16/2030 [id number] / / [id number] Hemostatic Surgiflo 8ml W/ Thrombin 2994 - [id number] Implanted:Qty: 2 on 12/01/2022 by Иван Tee MD at [facility] Hemostatic N/A: Ver[employer]brae [employer]- [employer] 01/29/2024 [id number] / / [id number] Hemostatic Surgiflo 8ml W/ Thrombin 2994 - [id number] Implanted:Qty: 1 on 12/01/2022 by Иван Tee MD at [facility] Hemostatic N/A: Ver[employer]brae [employer] 01/29/2024 [id number] / / [id number] Shank Osteogrip 5.5x35ns Implanted:Qty: 2 on 12/01/2022 by Иван Tee MD at [facility] Other N/A: Ver[employer]bra[employer] [id number] / / Description:1X ADD 3 Shank Osteogrip 5.5x40ns Implanted:Qty: 4 on 12/01/2022 by Иван Tee MD at [facility] Other N/A: Ver[employer]bra[employer] [id number] / / Description:1X ADD 3 Shank 5.5x40 Ats Thread Implanted:Qty: 4 on 12/01/2022 by Иван Tee MD at [facility] [employer] [id number] / / Description:1X ADD 3 Kenny Cp4 Crv Ti 5.4f985gs [id number] - [id number] Implanted:Qty: 1 on 12/01/2022 by Иван Tee MD at [facility] Kenny N/A: [employer] [id number] / / Description:LOAD NUMBER: [id number] STERILIZATION DATE: Set Screw Cdh 5.5/6.0mm Mas 2/Pk [id number] - [id number] Implanted:Qty: 1 on 12/01/2022 by Иван Tee MD at [facility] Screw N/A: [employer]e [employer] 03/27/2025 [id number] / / [id number] Set Screw Cdh 5.5/6.0mm Mas 2/Pk [id number] - [id number] Implanted:Qty: 1 on 12/01/2022 by Иван Tee MD at [facility] Screw N/A: [employer]e [employer] 03/22/2025 [id number] / / [id number] Set Screw Cdh 5.5/6.0mm Mas 2/Pk [id number] - [id number] Implanted:Qty: 1 on 12/01/2022 by Иван Tee MD at [facility] Screw N/A: Ver[employer]brae [employer] 12/23/2025 [id number] / / [id number] Set Screw Cdh 5.5/6.0mm Mas 2/Pk [id number] - [id number] Implanted:Qty: 1 on 12/01/2022 by Иван Tee MD at [facility] Screw N/A: Ver[employer]brae [employer] 12/23/2025 [id number] / / [id number] Set Screw Cdh 5.5/6.0mm Mas 2/Pk [id number] - [id number] Implanted:Qty: 1 on 12/01/2022 by Иван Tee MD at [facility] Screw N/A: [employer]e [employer] 03/22/2025 [id number] / / [id number] Instrumentation Spine Crosslink X10 Multi 39-45mm [id number] - [id number] Implanted:Qty: 1 on 12/01/2022 by Иван Tee MD at [facility] Spine N/A: [employer]e [employer] [id number] / / Description:LOAD NUMBER: [id number] STERILIZATION DATE: [place] Dbf 9ml [id number] - [id number] Implanted:Qty: 1 on 12/01/2022 by Иван Tee MD at [facility] N/A: Ver[employer] 10/19/2024 [id number] / [id number] / Description:[id number] Zeb Dbf 9ml [id number] - [id number] Implanted:Qty: 1 on 12/01/2022 by Иван Tee MD at [facility] N/A: [employer] 10/11/2024 [id number] / / [id number] Description:[id number] Explanted Type Area Software Validation Technician Device Identifier Shelf Expiration Date Model / Serial / Lot 4 Screws, 4 Screw Caps, 2 Rods Explanted:Qty: 1 on 12/01/2022 by Иван Tee MD at [facility] N/A: Vertebrae Procedures Procedure Name Priority Date/Time Associated Diagnosis Comments HEMOGLOBIN A1C Routine 02/10/2024 10:34 AM WEARING APPAREL ASSEMBLER Abnormal glucose from Last 3 Months or Most Recently Relevant to Health Maintenance Results * (ABNORMAL) HEMOGLOBIN A1C (02/10/2024 10:34 AM WEARING APPAREL ASSEMBLER) HEMOGLOBIN A1C 5.8(H) <5.7 % of total Hgb [facility] Cordero Comment: For someone without known diabetes, a hemoglobin A1c value between 5.7% and 6.4% is consistent with prediabetes and should be confirmed with a follow-up test. For someone with known diabetes, a value <7% indicates that their diabetes is well controlled. A1c targets should be individualized based on duration of diabetes, age, comorbid conditions, and other considerations. This assay result is consistent with an increased risk of diabetes. Currently, no consensus exists regarding use of hemoglobin A1c for diagnosis of diabetes for children. ESTIMATED AVERAGE GLUCOSE (MG/DL) 120 mg/dL [facility] yuliya Cordero ESTIMATED AVERAGE GLUCOSE (MMOL/L) 6.6 mmol/L [facility] yuliya Cordero Comment: FASTING:YES FASTING: YES Test Performed at: [facility] [address] [place] [address] Jyotsna Pizarro Vo Blood 02/10/2024 10:3 4 AM WEARING APPAREL ASSEMBLER 02/10/2024 10:37 AM WEARING APPAREL ASSEMBLER us Akin Baldwin MD CHEMISTRY ORDERABLES Final Re sult [facility] [phone] [facility] [address] [place] [address] from Last 3 Months or Most Recently Relevant to Health Maintenance Insurance RX [employer] Medicare Part D HUMANA PPO MCR [facility] INSURANCE RX [employer] Commercial Care Teams Silk Worker Relationship Specialty Start Date End Date Akin Baldwin MD [address] [place] [phone] PCP - General Internal Medicine 03/05/22
--- OUTSIDE RECORDS SUMMARY | 2024-12-08 09:21 | XMS_ITS | Clinical Summary ---
Author Organization [facility] [employer] Address [address] [place] [address] Care Team Providers Care Ukrainian Folk Arts Instructor Name Role Phone Moses Zavala MD Primary Care Provider [phone] Source Comments [facility],non-owned Affiliates and Associated Physician Practices is amultiple site organization consisting of ambulatory clinics and hospital sitesin [place], [place], [place] and [place]. This disclosure is being madepursuant to the Care Everywhere program and may not contain all information available regarding this patient. Last updated 17.[facility] Allergies No known active allergies Medications * Be aware that medications may not be up to date on this document. Alwaysverify current medications with the patient. 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 Gender Identity Not on file Sexual Orientation Not on file Last Filed Vital Signs Vital Sign Reading Time Taken Comments Blood Pressure 126/88 04/12/2016 11:37 AM POLITICAL THEORY PROFESSOR Pulse 71 04/12/2016 11:37 AM POLITICAL THEORY PROFESSOR Temperature 36.8 C (98.3 F) 04/12/2016 11:37 AM POLITICAL THEORY PROFESSOR Respiratory Rate 16 04/12/2016 11:37 AM POLITICAL THEORY PROFESSOR Oxygen Saturation 96% 04/12/2016 11:37 AM POLITICAL THEORY PROFESSOR Inhaled Oxygen Concentration - - Weight 102.1 kg (225 lb) 04/12/2016 11:37 AM POLITICAL THEORY PROFESSOR Height 177.8 cm (5' 10) 04/12/2016 11:37 AM POLITICAL THEORY PROFESSOR Body Mass Index 32.28 04/12/2016 11:37 AM POLITICAL THEORY PROFESSOR Plan of Treatment Health Maintenance Due Date Last Done Comments COLOGUARD (AGES 45-75) - COL ON CA SCREENING 1965 COLON MONITORING 1965 COLONOSCOPY - COLON CA SCREENING 1965 CT COLONOGRAPHY - COLON CA SCREENING 1965 Colorectal Cancer Screening 1965 FIT - COLON CA SCREENING 1965 FLEX SIG - COLON CA SCREENING 1965 LIPID TESTING 1965 HIV SCREENING 1980 HEPATITIS C SCREENING 09/27/1983 DTAP/TDAP/TD VACCINES (1 - Tdap) 1984 HEPATITIS B VACCINE (1 of 3 - 19+ 3-dose series) 1984 PNEUMOCOCCAL VACCINE 50+ (1 of 1 - PCV) 10/02/2015 ZOSTER VACCINE (1 of 2) 10/02/2015 DEPRESSION SCREENING 03/01/2024 COVID-19 VACCINE (1 - 2023-2 5 season) 2024 INFLUENZA VACCINE (#1) 2024 HIB VACCINE Aged Out No longer eligi ble based on patient's age to complete this topic HPV VACCINE Aged Out No longer eligi ble based on patient's age to complete this topic MENINGOCOCCAL (Group B) VACC INE SHARED DECISION-MAKING Aged Out No longer eligibl e based on patient's age to complete this topic MENINGOCOCCAL GROUPS A/C/Y/W VACCINE Aged Out No longer eligible b ased on patient's age to complete this topic Insurance [facility] Care Teams Ukrainian Folk Arts Instructor Relationship Specialty Start Date End Date Moses Zavala MD [address] [place] [address] PCP - General Family Medicine 04/12/16
--- OUTSIDE RECORDS SUMMARY | 2024-12-08 09:21 | XMS_ITS | Clinical Summary ---
Author Organization [facility] Address [address] [place] [address] Phone Care Team Providers Care Bowling Ball Finisher Name Role Phone Provider, None Primary Care Provider Unavailabl e Allergies No known active allergies Medications lisinopril (PRINIVIL, ZESTRIL) 20 MG Tablet 8 Active sertraline (ZOLOFT) 100 MG Tablet 8 Active XIFAXAN 550 MG Tablet 8 Active ciprofloxacin-de xamethasone (CIPRODEX) 0.3-0.1 % SuspensionIndica tions:Acute otitis externa of left ear, unspecified type Apply 4 drops to affected ear(s) BID x 7 days 1 Bottle 9 Active Active Problems No known active problems Social History Tobacco Use Types Packs/Day Years Used Date Smoking Tobacco: Never Smokeless Tobacco: Never Alcohol Use Standard Drinks/Week Comments No 0 (1 standard drink = 0.6 oz pur e alcohol) Sex and Gender Information Value Date Recorded Sex Assigned at Not on file Legal Sex Male 8:30 PM CDT Gender Identity Not on file Sexual Orientation Not on file Last Filed Vital Signs Vital Sign Reading Time Taken Comments Blood Pressure 138/70 09/20/2018 5:41 PM CDT Pulse 70 09/20/2018 5:41 PM CDT Temperature 37.1 C (98.8 F) 09/20/2018 5:41 PM CDT Respiratory Rate 16 09/20/2018 5:41 PM CDT Oxygen Saturation 98% 09/20/2018 5:41 PM CDT Inhaled Oxygen Concentration - - Weight 102.1 kg (225 lb) 09/20/2018 5:41 PM CDT Height 177.8 cm (5' 10) 09/20/2018 5:41 PM CDT Body Mass Index 32.28 09/20/2018 5:41 PM CDT Plan of Treatment Health Maintenance Due Date Last Done Comments Hepatitis C Virus (HCV) Screening 1965 Hepatitis B Immunization (1 of 3 - 19+ 3-dose series) 1984 Cologuard 2010 Colonoscopy 2010 Colorectal Cancer Screening 2010 Immunochemical Fecal Occult Blood 2010 Pneumococcal Immunization (50+ years) (1 of 1 - PCV) 10/02/2015 Zoster Immunization (1 of 2) 10/02/2015 Influenza Immunization (#1) 10/30/202412/30, 11/23/2019, 03/28/2019, Additional history exists SARS-COV-2 Immunization (2 - season) 2024 05/03/2020 Respiratory Syncytial Virus (RSV) Immunization (Adult) (1 - 1-dose 75+ series) 2040 DTaP/Tdap/Td Immunization Discontinued 2014, 02/18/2005, 03/01/2001 TdaP Immunization Completed 07/06/2014, 02/18/2005 Human Papillomavirus (HPV) Immunization Aged Out No longer eligible based on patient's age to complete this topic Meningococcal Immunization (ACWY) Aged Out No longer eligible based on patient's age to complete this topic Rotavirus Immunization Aged Out No lo nger eligible based on patient's age to complete this topic Care Teams Bowling Ball Finisher Relationship Specialty Start Date End Date Provider, None [place] PCP - General 02/12/18
--- OUTSIDE RECORDS SUMMARY | 2024-12-08 09:21 | XMS_ITS | Clinical Summary ---
Author Organization [facility] [address] [facility] Address [address] [place] [address] Care Team Providers Care Assistant Vice President Name Role Phone Moses Zavala MD Primary Care Provider [phone] Allergies No known active allergies Medications diclofenac DR (VOLTAREN) 75 mg EC tablet Take 75 mg by mouth 2 (two) times a day 09/05/2020 Active FLUoxetine (PROzac) 40 mg capsule Take 40 mg by mouth daily 10/05/2020 Active lisinopriL (PRINIVIL,ZESTRI L) 20 mg tablet Take 20 mg by mouth daily 10/05/2020 Active meloxicam (MOBIC) 15 mg tablet Take 15 mg by mouth daily 10/25/2020 Active gabapentin (NEURONTIN) 300 mg capsule Take 300 mg by mouth 2 (two) times a day 08/16/2020 Active sertraline (ZOLOFT) 100 mg tablet 11/06/2017 Active traMADoL (ULTRAM) 50 mg tablet Take by mouth 09/30/2020 Active tiZANidine (ZANAFLEX) 4 mg tablet Take 4 mg by mouth 3 (three) times a day as needed 08/30/2020 Active Active Problems No known active problems Surgical History Surgery Date Site/Laterality Comments BACK SURGERY 2020 SHOULDER SURGERY right Medical History Medical History Date Comments Anxiety Depression Hypertension Arthritis Family History Medical History Relation Name Comments Heart disease Father Stroke Father Relation Name Status Comments Father Mother Social History Tobacco Use Types Packs/Day Years Used Date Smoking Tobacco: Never Smokeless Tobacco: Never Personal Safety Answer Date Recorded Getting School Help Needed Not on file 05/14 Sex and Gender Information Value Date Recorded Sex Assigned at Not on file Legal 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 Gender Identity Not on file Sexual Orientation Not on file Obstetrics History Last Filed Vital Signs Vital Sign Reading Time Taken Comments Blood Pressure 128/88 10/30/2020 11:29 AM CDT Pulse 71 10/30/2020 11:29 AM CDT Temperature 36.5 C (97.7 F) 10/30/2020 11:29 AM CDT Respiratory Rate 14 10/30/2020 11:29 AM CDT Oxygen Saturation 96% 10/30/2020 11:29 AM CDT Inhaled Oxygen Concentration - - Weight 101.6 kg (224 lb) 10/30/2020 11:29 AM CDT Height 177.8 cm (5' 10) 10/30/2020 11:29 AM CDT Body Mass Index 32.14 10/30/2020 11:29 AM CDT Plan of Treatment Not on file Insurance [facility] Care Teams Assistant Vice President Relationship Specialty Start Date End Date Moses Zavala MD [address] [place] [address] [place] [address] PCP - General 11/22/07
--- NOTE | 2024-12-08 09:29 | ED.BACK ---
HPI - Back Pain/Injury General Chief Complaint: Back Pain/Injury Stated Complaint: back pain after misstep in a hole Time Seen by Provider: 12/08/24 09:11 Source: patient Mode of arrival: ambulatory Limitations: no limitations History of Present Illness HPI Narrative: This is a pleasant 59-year-old male patient with past medical history of diverticulitis, hypertension, osteoarthritis, sleep apnea, depression and chronic back pain due to previous lumbar diskectomy and replacement of L2-L3 test in 2020 2021 at [facility] who comes to the emergency room complaints of having low back pain since stopping the hole in his yd now 3 days ago. Patient endorses that he stepped into a hole with his right foot, had a jarring sensation in his right back and has had consistent pain since. He denies any acute fall and denies any loss of bowel bladder control or saddle anesthesia be on he has. Patient endorses that turning side to side or any rotation the trunk makes the pain worse. He has been taking his hydrocodone without any relief of symptoms. He also endorses that he has right testicular pain but notes it is not finding for to have right testicular pain when his back pain rounds of. He denies any fevers. He denies any cervical spine or thoracic spine pain. MD elicited complaint: back pain Pertinent past history: prior back pain and back surgery Onset (ago): day(s) (Three) Timing: constant Severity: similar to previous episodes Pain scale (0-10): 8 Quality: aching Location: lumbar spine and right lower back Radiation: none Exacerbating factors: movement Relieving factors: none Context: other (stepped in a hole) Treatments prior to arrival: prescription analgesics Work related injury: No Related Data Home Medications ?Medication ?Instructions ?Recorded ?Confirmed ?Last Taken ?Type acetaminophen 500 mg capsule 500 mg PO Q6H PRN fever or pain 09/04/20 09/24/21 Unknown History oxycodone-acetaminophen 5 mg-325 1 tablet PO Q4-6H PRN pain 08/22/21 09/24/21 Unknown History mg tablet baclofen 5 mg tablet 5 mg PO Q8H 09/24/21 09/24/21 Unknown History pregabalin 150 mg capsule 150 mg PO BID 09/24/21 09/24/21 Unknown History tizanidine 4 mg tablet 4 mg PO DAILY 09/24/21 09/24/21 Unknown History Allergies Allergy/AdvReac Type Severity Reaction Status Date / Time No Known Allergies Allergy Verified 12/08/24 09:12 Review of Systems Review of Systems: All systems reviewed & are unremarkable except as noted in HPI and below PMFSH Past Medical History Medical History History of COVID-19 01/2021 Chronic low back pain Prediabetes Seasonal allergies Chondromalacia of left patellofemoral joint Osteoarthritis SURI (obstructive sleep apnea) Depression Hypertension Diverticulitis Surgical History Surgical History History of back surgery L3-4 fusion in June 2020, disc replacement L2-3 in Apr 2021 History of carpal tunnel release (~1997) History of discectomy (~2004) L5-S1 History of shoulder surgery (~2007) Family History Family History Other Family history of coronary artery disease Heart disease Hypertension Social History Social History Smoking status: Never smoker Second hand tobacco smoke exposure: No Additional smoking assessment comments: currently smokes around pt Alcohol intake: current Alcohol use details: consumes 2 beers weekly Substance use: never Substance use type: does not use Living arrangements: with family Occupation/Education: unemployed Gender identity (if verbalized by the patient): Male Sexual Orientation (if Verbalized by the Patient): Straight or Heterosexual Agree to blood products: Yes Exam Const: General: healthy appearing, no acute distress and alert Nutritional Appearance: well nourished Orientation/consciousness: patient oriented x3 Limitations: no limitations HENMT: Head: normal to inspection Face/Nose/Sinus: Normal external nose present and Normal nares present Face and sinus: normal facial exam Eyes: Conjunctivae: conjunctivae normal Pupils: Equal, round and reactive pupils present Neck: Neck: normal visual inspection Other: Supple and full range of motion Chest: Chest palpation & inspection: normal inspection of the chest Resp: Effort & Inspection: normal respiratory effort Auscultation: clear to auscultation bilaterally Cardio: Rate: regular rate Rhythm: regular rhythm Heart sounds: no murmurs GI: Auscultation: normal bowel sounds : General: Yes bladder normal to palpation Male General Exam: Yes normal external exam Scrotum: scrotum normal and no scrotal swelling Testes: Testes normal, epididymides normal, no epidiymal tenderness, no testicular swelling and no testicular tenderness (Patient denies with the patient) Back/Spine/Pelvis: Back: no CVA tenderness Cervical Spine: No collar present Other: Right lumbar paraspinal muscles tender to palpation. There is palpable spasm on the right side. No midline thoracic or lumbar spinal tenderness to palpation, no step-off, no crepitus, no edema. Skin: General skin exam: normal color Rashes: no rashes Wounds: no wounds Neuro: General: patient oriented x3, moves all extremities, no meningeal signs and no focal motor deficits Speech: normal speech Gait exam (Neuro): Normal gait present Other: No gross motor deficits Extrem: General: normal to inspection, no clubbing, cyanosis or edema, no pedal edema and no edema Psych: Mental Status: mental status grossly normal Affect: normal affect Course Course Emergency Course: Patient medicated for pain with Valium 5 mg IV push and imaging obtained. No red flag symptoms identified. CT scan without any acute fractures or abnormalities. Postsurgical changes present. Patient continues to complain of pain. Dilaudid 0.5 mg x 1 ordered. Patient with overall improvement in his pain post administration. Shared decision making performed with the patient at the bedside and he is comfortable discharge home at this time. Will be discharged advised to continue his hydrocodone that he takes for chronic pain and I will prescribe a course of tizanidine and steroids. If patient's symptoms are not improved within the next week he should follow up with the his primary care provider for outpatient MRI. Patient discharged at this time stable condition. Vital Signs Vital signs: Vital Signs Temperature 98.0 F 12/08/24 09:08 Pulse Rate 67 12/08/24 09:08 Respiratory Rate 19 12/08/24 09:08 Blood Pressure 146/87 H 12/08/24 09:08 Pulse Oximetry 98 12/08/24 09:08 Oxygen Delivery Room Air 12/08/24 09:08 Temperature 98.0 F 12/08/24 09:08 Pulse Rate 72 12/08/24 10:50 Respiratory Rate 20 10/10/25 10:50 Blood Pressure 133/88 12/08/24 10:50 Pulse Oximetry 98 12/08/24 10:50 Oxygen Delivery Room Air 12/08/24 09:08 MDM - Back Pain/Injury MDM Narrative Medical decision making narrative: See ED Course Differential Diagnosis Differential diagnosis: Likely lumbar radiculopathy, sciatica, strain of lumbar region, pyelonephritis, discitis and other (Musculoskeletal pain) Lab Data 12/08/24 09:44 12/08/24 09:44 Labs: Lab Results 12/08/24 12/08/24 Range/Units 09:44 10:51 WBC 11.8 H (4.5-10.0) K/mm3 RBC 4.63 (4.6-6.20) M/mm3 Hgb 15.4 (14.0-18.0) g/dL Hct 43.9 (42.0-52.0) % MCV 94.8 (80-100) fl MCH 33.3 (26-34) pg MCHC 35.1 (32-36) g/dl RDW 13.2 (11.5-14.5) % Plt Count 230 (150-375) k/mm3 MPV 10.4 (7.4-10.4) fl Immature Gran % (Auto) 0.5 (0-0.5) % Neut % (Auto) 74.3 H (45.5-73.1) % Lymph % (Auto) 15.5 L (18.3-44.2) % [place] % (Auto) 8.6 H (2.6-8.5) % Eos % (Auto) 0.8 (0-4.4) % Baso % (Auto) 0.3 (0.2-1.2) % Lymph # (Auto) 1.83 (0.9-3.2) K/mm3 [place] # (Auto) 1.0 H (0.1-0.6) K/mm3 Eos # (Auto) 0.1 (0-0.3) K/mm3 Baso # (Auto) 0.0 (0.0-0.1) K/mm3 Abs Immat Gran (auto) 0.06 H (0.00-0.031) K/mm3 Absolute Neuts (auto) 8.8 H (1.3-6.7) K/mm3 Absolute Nucleated RBC 0.000 (0.0-0.012) K/mm3 Nucleated RBC % 0.0 (0.0-0.2) % Sodium 138 (137-145) mmol/L Potassium 4.1 (3.4-5.0) mmol/L Chloride 106 (98-107) mmol/L Carbon Dioxide 23 (22-30) mmol/L Anion Gap 9 (4-12) mmol/L BUN 13 (9-20) mg/dL Creatinine 0.77 (0.7-1.3) mg/dL Estim Creat Clear Calc 93 ml/min Estimated GFR > 60 (59 - ) Glucose 122 H (65-110) mg/dL Calcium 9.9 (8.4-10.2) mg/dL Total Bilirubin 0.7 (0.2-1.3) mg/dL AST 29 (17-59) U/L ALT 31 (6-50) U/L Alkaline Phosphatase 61 (38-126) U/L Total Protein 8.1 (6.3-8.2) g/dL Albumin 4.6 (3.5-5.1) g/dL Urine Color Yellow (Yellow) Urine Appearance Clear (Clear) Urine pH 6.5 (5.0-9.0) Ur Specific Point Clear 1.009 (1.001-1.035) Urine Protein Negative (Negative) mg/dL Urine Glucose (UA) Negative (Negative) mg/dL Urine Ketones Negative (Negative) mg/dL Ur Blood (Man) Negative (Negative) Urine Nitrate Negative (Negative) Urine Bilirubin Negative (Negative) Urine Urobilinogen 0.2 (<2.0) mg/dL Leukocyte Esterase Rfl Negative (Negative) ELVIS/UL Discharge Plan Discharge Clinical Impression: Strain of lumbar region, Lumbar radiculopathy Chronic low back pain Qualifiers: Back pain laterality: unspecified Sciatica presence: without sciatica Qualified Code(s): M54.5 - Low back pain Patient Disposition: Home Condition: Stable Instructions: Antibiotic Form Additional Instructions: Thank you for allowing us to evaluate you to the emergency room today. Your CT scan does not show any new fractures to the lumbar spine or any malalignment related to previous surgical procedures. Your stable to discharge home to continue your current hydrocodone that you take for chronic pain in addition I am starting you on a course of steroids as well as muscle relaxers. Please take them as ordered and taken to completion. Follow up with primary care provider in 1 week if your symptoms are not improved for outpatient MRI. As always if any new or worsening symptoms do not hesitate to return to the emergency room. Patient Language: Occitan Prescriptions: New prednisone 50 mg tablet 50 mg PO DAILY Qty: 7 0RF tizanidine 4 mg capsule 4 mg PO Q8H PRN (Reason: muscle spasticity) Qty: 20 0RF No Action acetaminophen 500 mg capsule 500 mg PO Q6H PRN (Reason: fever or pain) pregabalin 150 mg capsule 150 mg PO BID tizanidine 4 mg tablet 4 mg PO DAILY baclofen 5 mg tablet 5 mg PO Q8H oxycodone-acetaminophen 5-325 mg tablet 1 tablet PO Q4-6H PRN (Reason: pain) amoxicillin-pot clavulanate 875-125 mg tablet 1 tablet PO BID Qty: 20 0RF duloxetine 60 mg capsule,delayed release(DR/EC) 60 mg PO DAILY Qty: 90 1RF diclofenac sodium 75 mg tablet,delayed release (DR/EC) 75 mg PO BID Qty: 180 1RF lisinopril 40 mg tablet 40 mg PO DAILY Qty: 90 1RF Follow-up/Referrals: Denny,Akin Barrios MD [Primary Care Provider] Referral Note: Call for appointment in 1 week PHYSICIAN NOT ON STAFF,NONSTAFF [Non-Staff] Time of Disposition: 11:51
[2024-12-08 09:49] LABS: Hematocrit 43.9 % (42.0-52.0); Hemoglobin 15.4 g/dL (14.0-18.0); Immature Granulocyte Percent A 0.5 % (0-0.5); Lymphocytes Absolute Auto 1.83 K/mm3 (0.9-3.2); Mean Corpuscular HGB Conc 35.1 g/dl (32-36); Mean Corpuscular Hemoglobin 33.3 pg (26-34); Mean Corpuscular Volume 94.8 fl (80-100); Nucleated Red Blood Cells Absolute Auto 0.000 K/mm3 (0.0-0.012); Nucleated Red Blood Cells Perc 0.0 % (0.0-0.2); Platelet Count Result 230 k/mm3 (150-375); Red Blood Count 4.63 M/mm3 (4.6-6.20); White Blood Count 11.8 K/mm3 (4.5-10.0)
[2024-12-08] MEDS: diazePAM INJ (*CRX) 10 MG/2 ML SYRINGE 5 MG IV PUSH (09:50)
[2024-12-08 10:11] LABS: Alanine Aminotransferase 31 U/L (6-50); Albumin Level 4.6 g/dL (3.5-5.1); Alkaline Phosphatase 61 U/L (38-126); Anion Gap 9 mmol/L (4-12); Aspartate Amino Transferase 29 U/L (17-59); Bilirubin,Total 0.7 mg/dL (0.2-1.3); Blood Urea Nitrogen 13 mg/dL (9-20); Calcium 9.9 mg/dL (8.4-10.2); Carbon Dioxide 23 mmol/L (22-30); Chloride 106 mmol/L (98-107); Estimated CRCL calculation 93 ml/min; Estimated Glomerular Filt Rate > 60; Glucose 122 mg/dL (65-110); Potassium 4.1 mmol/L (3.4-5.0); Sodium 138 mmol/L (137-145); Total Protein 8.1 g/dL (6.3-8.2)
[2024-12-08] MEDS: HYDROmorphone HCL INJ (*CRX) 1 MG/ML SYR 0.5 MG IV PUSH (10:47)
[2024-12-08 10:50] VITALS: BP 133/88; PULSE 72; RESP 20; O2SAT 98
[2024-12-08 11:20] LABS: Add Urine Microscopic? NO; Appearance Urine Clear (Clear); Glucose Urine UA Negative (Negative); Leukocyte Esterase Ur Negative LEU/UL (Negative); Nitrate Urine Negative (Negative); Specific Grav Ur 1.009 (1.001-1.035)
[2024-12-08 12:05] VITALS: BP 130/85; PULSE 73; RESP 18; O2SAT 100
== END 2024-12-08 12:10 | disposition home or self-care (01) ==
PROVIDERS: Emergency Provider Nurse Practitioner Adult Health; PCP Internal Medicine
DX: S39.012A Strain of muscle, fascia and tendon of lower back, initial encounter (principal); M54.16 Radiculopathy, lumbar region; G89.29 Other chronic pain; M54.50 Low back pain, unspecified; I10 Essential (primary) hypertension; R73.03 Prediabetes; G47.33 Obstructive sleep apnea (adult) (pediatric); F32.A Depression, unspecified; Z86.16 Personal history of COVID-19; Z98.1 Arthrodesis status; M19.90 Unspecified osteoarthritis, unspecified site; W18.42XA Slipping, tripping and stumbling without falling due to stepping into hole or opening, initial encounter; Z77.22 Contact with and (suspected) exposure to environmental tobacco smoke (acute) (chronic)
CPT/HCPCS: 36415; 72131; 80053; 81003; 85025; 96374; 96375; 99284; J1171; J3360